=== PATIENT | female | born 1980 | race African-American/Black ===

== ENCOUNTER 2021-01-23 02:53 | Emergency (ER) | payer OTHER ==
[~2021-01-23] VITALS: Ht 172.7 cm; Wt 59.0 kg
[~2021-01-23 02:53] MED LIST: DIFLUCAN150 MG PO; DOXYCYCLINE 10100 MG PO; IRON325 PO; NAPROSYN500 MG PO; TRAMADOL 50 MG50 MG PO; ULTRAM 50MG TAB50 MG PO; VENTOLIN HFA 1818 GM INH
[2021-01-23 03:04] VITALS: BP 106/57
[2021-01-23] MEDS ORDERED: AMOXICILLIN 50500 M1 PO (03:17)
[2021-01-23] MEDS ORDERED: TRAMADOL 50 MG50 MG PO (03:17)
[2021-01-23] MEDS ORDERED: DIFLUCAN150 MG PO (03:26)
== END 2021-01-23 03:40 | disposition home or self-care (01) ==
LOC: M.ERS 02:53
DX: K04.7 Periapical abscess without sinus (principal); M79.7 Fibromyalgia; J45.909 Unspecified asthma, uncomplicated; F17.210 Nicotine dependence, cigarettes, uncomplicated; Z86.2 Personal history of diseases of the blood and blood-forming organs and certain disorders involving the immune mechanism; Z88.5 Allergy status to narcotic agent